=== PATIENT | male | born 1995 | race Caucasian/White ===

== ENCOUNTER 2017-02-28 09:10 | Emergency (ER) | payer OTHER ==
[~2017-02-28] VITALS: Ht 172.7 cm; Wt 56.7 kg
[~2017-02-28 09:10] MED LIST: INHALER; LORTAB ELIXIR15 ML PO
[2017-02-28] MEDS ORDERED: ALBUTEROL17 GM (09:17)
[2017-02-28] MEDS ORDERED: CLARITIN10 M3 (09:17)
== END 2017-02-28 11:14 | disposition home or self-care (01) ==
LOC: SED 09:10
DX: S61.213A Laceration without foreign body of left middle finger without damage to nail, initial encounter (principal); W25.XXXA Contact with sharp glass, initial encounter; Y92.009 Unspecified place in unspecified non-institutional (private) residence as the place of occurrence of the external cause
CPT/HCPCS: 12001; 99283